=== PATIENT | male | born 1950 | race Caucasian/White ===

== ENCOUNTER → 2021-01-03 | Emergency (ER) | payer OTHER ==
[~2021-01-03] VITALS: Ht 177.8 cm; Wt 73.9 kg
[~2021-01-03] MED LIST: ATORVASTATIN PO; CIPRO500 MG PO; CLONAZEPAM2 MG PO; COZAAR100 MG; EFFEXOR XR75 MG PO; HIBICLENS118 ML TOP; LISINOPRIL20 MG PO; MUPIROCIN15 GM TOP; PRINIVIL20 MG PO; RESTORIL7.5 MG PO; SEROQUEL200 MG PO; ZOCOR20 MG PO; [UNRECOGNIZED DRUG - OTHER] PO
== END | disposition home or self-care (01) ==
LOC: ER 09:42
DX: L72.0 Epidermal cyst (principal); L02.213 Cutaneous abscess of chest wall; B96.89 Other specified bacterial agents as the cause of diseases classified elsewhere

== ENCOUNTER 2021-04-13 08:37 | Emergency (ER) | payer OTHER ==
[~2021-04-13] VITALS: Ht 177.8 cm; Wt 70.8 kg
[2021-04-13] MEDS ORDERED: FENOFIBRATE160 MG PO (09:10)
[2021-04-13] MEDS ORDERED: FENOFIBRATE30 MG (09:10)
== END 2021-04-13 13:02 | disposition home or self-care (01) ==
LOC: ER 08:37
DX: R34 Anuria and oliguria (principal); I10 Essential (primary) hypertension

== ENCOUNTER 2023-01-11 10:42 | Inpatient (IN) | payer OTHER ==
[~2023-01-11] VITALS: Ht 177.8 cm; Wt 73.5 kg
[~2023-01-11 10:42] MED LIST changes: +FENOFIBRATE160 MG PO; +FENOFIBRATE30 MG
[2023-01-11] MEDS ORDERED: TRAZODONE HCL150 MG (11:19)
[2023-01-11 12:26] LABS: HEMATOCRIT 38.6 % (39.0-48.0); HEMOGLOBIN 13.4 g/dL (13-16.00); MEAN CELL VOLUME 89.4 fL (80.0-100.00); MEAN CORPUSCULAR HEMOGLOBIN 31.1 pg (27.00-32.0); MEAN CORPUSCULAR HGB CONC 34.8 g/dl (32.0-36.0); PLATELET COUNT 245 K/uL (150-450); RED BLOOD COUNT 4.32 M/uL (4.00-6.00); RED CELL DISTRIBUTION WIDTH 12.9 % (11.5-14.5)
[2023-01-11 12:54] LABS: URINE APPEARANCE Clear; URINE BILIRRUBIN Negative (NEGATIVE); URINE BLOOD Negative; URINE COLOR Yellow; URINE GLUCOSE Negative (NEGATIVE); URINE LEUKOCYTE Negative; URINE NITRATE Negative; URINE PROTEIN Negative (NEGATIVE); URINE UROBILINOGEN 0.2 E.U./dl
[2023-01-11 13:34] LABS: ALBUMIN 3.8 gm/dL (3.4-5.0); BILIRUBIN TOTAL 0.88 mg/dL (0.3-1.2); CALCIUM 8.7 mg/dL (8.5-10.1); CREATININE SERUM 0.93 mg/dL (0.70-1.30); GFR 80.09; GLOBULINA 3.3 G/DL (2.4-3.5); POTASSIUM 4.41 mEq/L (3.5-5.1); TOTAL PROTEIN 7.1 gm/dL (6.4-8.2)
[2023-01-11 13:35] LABS: URINE BACTERIA 1.2 uL (0.0-1933); URINE EPITHELIAL CELLS 0.1 uL (0.0-38.8); URINE RBC 0.9 uL (0.0-20.8); URINE WBC 0.1 uL (0.0-23.2)
[2023-01-12 07:48] LABS: ALBUMIN 3.2 gm/dL (3.4-5.0); BILIRUBIN TOTAL 0.57 mg/dL (0.3-1.2); BILIRUBIN,CONJUGATED 0.15 mg/dL (0.0-0.2); BILIRUBIN,UNCONJUGATED 0.42 mg/dL (0.0-0.6); CALCIUM 8.1 mg/dL (8.5-10.1); CHOL HDL RATIO 2.6 (0-5.0); CREATININE SERUM 0.89 mg/dL (0.70-1.30); GFR 84.26; GLOBULINA 2.5 G/DL (2.4-3.5); POTASSIUM 4.53 mEq/L (3.5-5.1); TOTAL PROTEIN 5.7 gm/dL (6.4-8.2); TSH 1.88 uIU/mL (0.358-3.74)
[2023-01-12 08:24] LABS: HEMATOCRIT 35.5 % (39.0-48.0); HEMOGLOBIN 12.6 g/dL (13-16.00); MEAN CELL VOLUME 89.2 fL (80.0-100.00); MEAN CORPUSCULAR HEMOGLOBIN 31.7 pg (27.00-32.0); MEAN CORPUSCULAR HGB CONC 35.5 g/dl (32.0-36.0); PLATELET COUNT 225 K/uL (150-450); RED BLOOD COUNT 3.98 M/uL (4.00-6.00)
[2023-01-12 09:05] LABS: PROTHROMBIN TIME 10.5 SECONDS (9.0-11.5)
[2023-01-12 09:12] LABS: ERYTHROCYTE SEDIMENTATION RATE 2 mm/hr
[2023-01-12 10:12] LABS: PH,URINE 6.5 (5.0-8.0); URINE APPEARANCE Clear; URINE BILIRRUBIN Negative (NEGATIVE); URINE BLOOD Negative; URINE COLOR Yellow; URINE GLUCOSE Negative (NEGATIVE); URINE LEUKOCYTE Negative; URINE NITRATE Negative; URINE PROTEIN Negative (NEGATIVE); URINE UROBILINOGEN 0.2 E.U./dl
[2023-01-12 11:01] LABS: URINE BACTERIA 1.2 uL (0.0-1933); URINE RBC 0.4 uL (0.0-20.8); URINE WBC 0.3 uL (0.0-23.2)
[2023-01-13 07:15] LABS: ALBUMIN 3.5 gm/dL (3.4-5.0); BILIRUBIN TOTAL 0.35 mg/dL (0.3-1.2); CALCIUM 8.9 mg/dL (8.5-10.1); CREATININE SERUM 0.92 mg/dL (0.70-1.30); GFR 81.1; GLOBULINA 2.7 G/DL (2.4-3.5); POTASSIUM 4.41 mEq/L (3.5-5.1); TOTAL PROTEIN 6.2 gm/dL (6.4-8.2)
[2023-01-13 09:29] LABS: URINE PROT QUANT 24HR < 5.00 MG/DL
== END 2023-01-13 15:28 | disposition home or self-care (01) | DRG 641 ==
LOC: ER 10:42 → MEDI 21:27
PROVIDERS: Emergency Medicine; General Practice; ADMIT Internal Medicine; ATTEND Internal Medicine
DX: E87.1 Hypo-osmolality and hyponatremia (principal)